=== PATIENT | female | born 1985 | race Caucasian/White ===

== ENCOUNTER 2021-01-24 14:27 | Inpatient (IN) | payer OTHER ==
[~2021-01-24] VITALS: Ht 157.5 cm; Wt 68.0 kg
[2021-01-24] MEDS ORDERED: TOPROL XL100 M1 PO (14:29)
[2021-02-23] MEDS ORDERED: TOPROL XL100 M1 PO (15:44)
== END 2021-02-04 11:37 | disposition home or self-care (01) | DRG 694 ==
LOC: ER 14:27 → MEDI 17:04 → MEDJ 17:04
PROVIDERS: Surgery; ADMIT Internal Medicine; ATTEND Internal Medicine
PROC: BT14ZZZ Fluoroscopy of Kidneys, Ureters and Bladder (ICD-10-PCS; 2021-01-27)
PROC: 0T9680Z Drainage of Right Ureter with Drainage Device, Via Natural or Artificial Opening Endoscopic (ICD-10-PCS; principal; 2021-01-27 10:00)
DX: N20.2 Calculus of kidney with calculus of ureter (principal); N13.8 Other obstructive and reflux uropathy; N39.0 Urinary tract infection, site not specified; B96.20 Unspecified Escherichia coli [E. coli] as the cause of diseases classified elsewhere; I10 Essential (primary) hypertension; R74.01 Elevation of levels of liver transaminase levels
CPT/HCPCS: 70551

== ENCOUNTER 2021-02-24 10:31 | Day surgery (SDC) | payer OTHER ==
[~2021-02-24 10:31] MED LIST: TOPROL XL100 M1 PO
[2021-02-24] MEDS ORDERED: ULTRAM50 MG PO (16:02)
[2021-02-24] MEDS ORDERED: TAMS0.4C PO (16:07)
== END 2021-02-24 20:30 | disposition home or self-care (01) ==
LOC: CIR.AMB 10:31
PROVIDERS: ATTEND Surgery
DX: N20.2 Calculus of kidney with calculus of ureter (principal); Z20.822 Contact with and (suspected) exposure to COVID-19

== ENCOUNTER 2021-02-27 23:42 | Emergency (ER) | payer OTHER ==
[~2021-02-27] VITALS: Ht 157.5 cm; Wt 70.8 kg
[~2021-02-27 23:42] MED LIST changes: +TAMS0.4C PO; +ULTRAM50 MG PO
[2021-02-28] MEDS ORDERED: TAMS0.4C (00:03)
[2021-02-28] MEDS ORDERED: CEFUROXIME500 MG PO (07:16)
== END 2021-02-28 19:14 | disposition home or self-care (01) ==
LOC: ER 23:42
DX: R31.0 Gross hematuria (principal); E83.59 Other disorders of calcium metabolism; N29 Other disorders of kidney and ureter in diseases classified elsewhere